=== PATIENT | female | born 1990 | race Caucasian/White ===

== ENCOUNTER → 2022-06-16 08:17 | Outpatient (CLI) | payer BC, SELFPAY ==
--- NOTE | ~2022-06-16 | US_ITS ---
EXAMINATION: US OB /maternal detail DATE: 06/16/2022 08:50 INDICATION: Second trimester anatomic survey TECHNIQUE: Real-time ultrasound of the pelvis was performed. COMPARISON: None. FINDINGS: There is a single living fetus in breech presentation. The placenta is posterior and 3.1 cm from the internal cervical os. The cervical length is 3 cm. heart rate is 150 beats per minute (bpm). F etal cardiac activity and movement are noted. The amniotic fluid index is subjectively normal. Bilateral choroid plexus cysts are noted. The following anatomy was identified as normal: 4 chamber heart 3 vessel cord cord insertion kidneys urinary bladder stomach spine diaphragm ventricles cisterna magna cerebellum The following biometric data were obtained: Biparietal diameter (BPD): 4.1 cm; head circumference (HC): 15.6 cm; abdominal circumference (AC): 13 .7 cm; femur length (FL): 2.8 cm. These measurements are concordant. Estimated weight is 258 g +/- 38 g, which correlates with the 52nd percentile when 11/12/2022 is used as estimated date of delivery. As single measurements, these parameters are each equal to the following estimated gestational ages w ith ranges of +/- 2 standard deviations: BPD: 18 weeks 4 days ( 16 weeks 6 days - 20 weeks 2 days). HC: 18 weeks 4 days ( 17 weeks 1 days - 20 weeks 0 days). AC: 19 weeks 1 days ( 17 weeks 1 days - 21 weeks 2 days). FL: 18 weeks 4 days ( 16 weeks 5 days - 20 weeks 2 days). estimated gestational age based solely on measurements from this exam is 18 weeks 5 days +/- 1 weeks 2 days. IMPRESSION: 1. Single living fetus in breech presentation. 2. Estimated weight is 258 g +/- 38 g, which correlates with the 52nd percentile when 11/12/2022 is used as estimated date of delivery. Reviewed, dictated and finalized at location A. 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 Single living fetus in breech presentation. 2. Estimated weight is 258 g +/- 38 g, which correlates with the 52nd per centile when 11/12/2022 is used as estimated date of delivery.
== END ==
PROVIDERS: PCP Nurse Practitioner Adult Health; Visit Provider Advanced Practice Midwife
DX: Z36.9 Encounter for antenatal screening, unspecified (principal); Z3A.18 18 weeks gestation of pregnancy
CPT/HCPCS: 76805

== ENCOUNTER → 2022-09-25 09:19 | Outpatient (CLI) | payer BC, SELFPAY ==
--- NOTE | ~2022-09-25 | US_ITS ---
EXAMINATION: US OB follow up DATE: 09/25/2022 09:51 INDICATION: Follow-up choroid plexus cyst and growth TECHNIQUE: Real-time transabdominal obstetric ultrasound. FINDINGS: Comparison ultrasound dated 06/16/2022 There is a single living fetus in vertex presentation. The placenta is fundal without placenta previ a. No evidence for choroid plexus cyst on current examination. cardiac activity and movement is noted with a heart rate of 122 beats per minute. T he amniotic fluid volume is normal. MARLYS measures 17 cm.. The following biometric data were obtained: BPD: 87mm corresponds to gestational age 35 weeks 1 days. Head circumference: 312mm corresponds to gestational age 85 weeks 0 days. Abdominal circumference: 288mm corresponds to gestational age 32 weeks 5 days. Femur length: 63mm corresponds to gestational age 32 weeks 3 days. Estimated weight: 2118grams +/- 318grams 39.4%.] IMPRESSION: 1. Single living intrauterine in vertex presentation with an estimated gestational age of 33 weeks 1 days by inititial ultrasound. Appropriate interval growth. 2. No evidence for choroid plexus cyst on current study. Reviewed, dictated and finalized at location B. IMPRESSION: 1. Single living intrauterine in vertex presentation with an estimat ed gestational age of 33 weeks 1 days by inititial ultrasound. Appropriate int erval growth. 2. No evidence for choroid plexus cyst on current study.
== END ==
PROVIDERS: PCP Nurse Practitioner Adult Health; Visit Provider Obstetrics & Gynecology Gynecology
DX: O35.03X0 Maternal care for (suspected) central nervous system malformation or damage in fetus, choroid plexus cysts, not applicable or unspecified (principal); Z3A.33 33 weeks gestation of pregnancy
CPT/HCPCS: 76816

== ENCOUNTER 2024-10-16 15:41 | Outpatient (CLI) | payer BC, SELFPAY ==
--- NOTE | ~2024-10-16 | US_ITS ---
Thyroid ultrasound. Clinical History: Yossi's thyroiditis Findings: Real-time sonography of the thyroid gland was performed. The right lobe measures 5.5 x 1.3 x 1.5 cm. The left lobe measures 4.3 x 1.4 x 1.4 cm. The isthmus is 4 mm in AP diameter. Thyroid parenchyma is heterogeneous without discrete nodule. Impression: Heterogeneous thyroid parenchyma without discrete nodule.. Reviewed, dictated and finalized at [facility]. Impression: Heterogeneous thyroid parenchyma without discrete nodule..
== END 2024-10-16 15:42 | disposition home or self-care (01) ==
PROVIDERS: PCP Nurse Practitioner Adult Health; Visit Provider Physician Assistant
DX: E06.3 Autoimmune thyroiditis (principal)
CPT/HCPCS: 76536

== ENCOUNTER 2025-02-14 15:31 | Outpatient (CLI) | payer BC, SELFPAY ==
--- NOTE | ~2025-02-14 | XR_ITS ---
XR_[id number] 02/14/2025 15:53 Indication: Chronic neck pain Procedure: 5 views cervical spine Comparison: No prior studies for comparison. Findings: Normal cervical alignment. Vertebral body and disc heights are preserved. No prevertebral soft tissue swelling. No acute fracture or traumatic malalignment. Odontoid process is normal. Impression: 1: No significant abnormality of the cervical spine. Reviewed, dictated and finalized at location O. Impression: 1: No significant abnormality of the cervical spine.
--- NOTE | ~2025-02-14 | XR_ITS ---
EXAMINATION: XR lumbar spine 2-3V DATE: 02/14/2025 15:53 INDICATION: Chronic lower back pain. TECHNIQUE: 3 images of the lumbar spine were obtained. COMPARISON: None. FINDINGS: There is bowel gas and stool projecting over the pelvis which limits evaluation. Mild levoconvex curvature of the lumbar spine. No compression fracture in the lumbar spine. Moderate intervertebral disc space narrowing at the L2-L3, L3-L4 and L4-L5 levels. Bilateral pars defects at the L5 level. Minimal grade 1 anterolisthesis of L5 on S1. Mild anterior osteophytosis in the mid lumbar spine. IMPRESSION: 1. No compression fracture in the lumbar spine. 2. Moderate intervertebral disc space narrowing at the L2-L3, L3-L4 and L4-5 levels. 3. Bilateral pars defects at the L5 level. 4. Minimal grade 1 anterolisthesis of L5 on S1. If symptoms persist or worsen, consider an MRI of the lumbar spine for further assessment. Reviewed, dictated and finalized at location Q. IMPRESSION: 1. No compression fracture in the lumbar spine. 2. Moderate intervertebral disc space narrowing at the L2-L3, L3-L4 and L4-5 le vels. 3. Bilateral pars defects at the L5 level. 4. Minimal grade 1 anterolisthesis of L5 on S1. If symptoms persist or worsen, consider an MRI of the lumbar spine for further assessment.
--- OUTSIDE RECORDS SUMMARY | 2025-02-14 16:52 | XMS_ITS | Clinical Summary ---
Author Organization [facility] Address [address] [place] [address] Care Team Providers Care Film Writer Name Role Phone Luciano Chase Primary Care Provider + Allergies No known active allergies Medications buPROPion XL (WELLBUTRIN XL) 300 mg 24 hr tablet Take 1 tablet (300 mg total) by mouth daily 2 Active cyanocobalamin (Vitamin B-12) 1,000 mcg/mL injection INJECT 1 ML EVERY WEEK BY SUBCUTANEOUS ROUTE FOR 84 DAYS 2 Active BD SafetyGlide Syringe 1 mL 27 gauge x 5/8 syringe USE DIRECTED TO INJECT B-12 ONCE WEEKLY 2 Active vit no.124/iron/fol ic ( VITAMIN ORAL) Take by mouth Ac tive busPIRone (BUSPAR) 10 mg tablet Take 1 tablet (10 mg total) by mouth 2 (two) times a day 4 Active Vraylar 1.5 mg capsule 4 Active hydrOXYzine (VISTARIL) 50 mg capsule TAKE 1 TO 2 CAPSULES BY MOUTH DAILY NEEDED 4 Active venlafaxine XR (EFFEXOR-XR) 150 mg 24 hr capsule TAKE ONE CAPSULE BY MOUTH DAILY IN ADDITIOAN TO THE 75MG DOSE 4 Active buPROPion XL (WELLBUTRIN XL) 150 mg 24 hr tablet 4 Active levothyroxine (SYNTHROID) 150 mcg tablet Take 1 tablet (150 mcg total) by mouth daily 90 tablet 3 4 Active Active Problems No known active problems Social History Tobacco Use Types Packs/Day Years Used Date Smoking Tobacco: Former Cigarettes Smokeless Tobacco: Never Tobacco Cessation:Counseling Given: Not Answered Personal Safety Answer Date Recorded Getting School Help Needed Not on file 06/28 Comments Unknown Sex and Gender Information Value Date Recorded Sex Assigned at Not on file Legal Sex Female 10:35 AM CDT Gender Identity Female 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 Sexual Orientation Not on file Obstetrics History Last Filed Vital Signs Vital Sign Reading Time Taken Comments Blood Pressure 116/83 10/13/2023 1:27 PM CDT Pulse 99 10/13/2023 1:27 PM CDT Temperature 36.7 C (98.1 F) 05/06/2022 8:57 AM 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 Respiratory Rate - - Oxygen Saturation 99% 05/06/2022 8:57 AM 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 Inhaled Oxygen Concentration - - Weight 98.9 kg (218 lb) 10/13/2023 1:27 PM CDT Height 167.6 cm (5' 6) 10/13/2023 1:27 PM CDT Body Mass Index 35.19 10/13/2023 1:27 PM CDT Plan of Treatment Health Maintenance Due Date Last Done Comments Cervical Cancer Screening 1989 Depression Screening 1989 Hepatitis C Screening 1989 Varicella Vaccines (1 of 2 - 13+ 2-dose series) 2002 Hepatitis B Screening 2007 Regular Well Visit/Exam 18-64 2007 HPV Vaccines (1 - 3-dose SCDM series) 02/29/2016 Covid-19 Vaccine ( season) 2024 11/02/2020, 10/13/2020, 09/12/2020, Additional history exists Influenza Vaccine (#1) 2025 03/21/2022, 2020 DTaP/Tdap/Td Vaccine (2 - Td or Tdap) 07/06/2030 07/06/2020 Pneumococcal vaccine <65 Aged Out No longer eligible based on patient's age to complete this topic Insurance [facility] [place] [address] [place] [address] [place] [address] [place] [address] Care Teams Film Writer Relationship Specialty Start Date End Date Luciano Chase PA [address] [place] [address] PCP - General Internal Medicine 10/13/23
== END 2025-02-14 15:32 | disposition home or self-care (01) ==
LOC: ANHBWCIMG 15:33
PROVIDERS: PCP Nurse Practitioner Adult Health; Visit Provider Nurse Practitioner Adult Health
DX: M48.061 Spinal stenosis, lumbar region without neurogenic claudication (principal); M43.17 Spondylolisthesis, lumbosacral region
CPT/HCPCS: 72040; 72100